=== PATIENT | male | born 1955 | race Caucasian/White ===

== ENCOUNTER 2021-11-01 05:35 | Day surgery (SDC) | payer OTHER ==
--- NOTE | 2021-10-28 17:41 | RAD REPORT ---
EXAM DESCRIPTION: RAD - Chest Pa And Lat (2 Views) - 10/28/2021 5:20 pm CLINICAL HISTORY: Pre op pending shoulder arthroscopy COMPARISON: None TECHNIQUE: Frontal and lateral views of the chest were obtained. FINDINGS: The lungs are clear. No failure or volume overload. Loop recorder overlies the left lower chest. Heart size is normal and central vasculature is within normal limits. No pleural effusion or pneumothorax seen. No acute bony finding noted. No aortic abnormality. IMPRESSION: No acute cardiopulmonary process.
[2021-10-28 17:46] LABS: Protime INR 1.04
[2021-11-01] MEDS ORDERED: NA CHLORIDE 0.9% 1,000 ML ONE ×2 (05:56→07:52)
[2021-11-01] MEDS ORDERED: dexAMETHasone 10 MG/ML VIAL ONE ×2 (06:46→07:42)
[2021-11-01] MEDS ORDERED: FENTANYL CITR 100 MCG/2 ML ONE (06:46)
[2021-11-01] MEDS ORDERED: LIDOCAINE 1% MPF 5 ML VIAL ONE (06:46)
[2021-11-01] MEDS ORDERED: MIDAZOLAM HCL 2 MG/2 ML INJ ONE (06:47)
[2021-11-01] MEDS ORDERED: EPINEPHRINE/PF 1 MG/ML AMP ONE ×2 (06:47→07:18)
[2021-11-01] MEDS ORDERED: ROPLVACAINE HCL 40 ML ONE (06:47)
[2021-11-01] MEDS ORDERED: CLINDAMYCIN INJ 600 MG in NA CHLORIDE 0.9% 50 ML IV ONE (07:30)
[2021-11-01] MEDS ORDERED: propofoL 200 MG/20 ML VIAL IV ONE (07:42)
[2021-11-01] MEDS ORDERED: KETOROLAC 30 MG/ML INJ ONE (07:43)
[2021-11-01] MEDS ORDERED: ONDANSETRON 4 MG/2 ML VIAL ONE (07:43)
[2021-11-01] MEDS ORDERED: LIDOCAINE 2% MPF 5 ML VIAL ONE (07:43)
[2021-11-01] MEDS ORDERED: ROCURONIUM 50 MG/5 ML VIAL IV ONE (07:46)
[2021-11-01] MEDS ORDERED: NEOSTIGMINE 1 MG/ML -5 ML ONE (10:24)
[2021-11-01] MEDS ORDERED: GLYCOPYRROLATE 0.2 MG/ML SYR ONE (10:24)
--- NOTE | 2021-11-01 10:47 | P.BOP ---
Preoperative diagnosis: left shoulder rotator cuff tear, biceps tenosynovitis, impingement syndrome Postoperative diagnosis: same Primary procedure: left shoulder arthroscopic rotator cuff repair Secondary procedure: left shoulder arthroscopic biceps tenotomy Other procedure(s): left shoulder arthroscopic subacromial decompression Blow Mold Machine Operator: NONE,NONE Estimated blood loss: 10 cc Specimen: none Findings: see dictation Anesthesia: General Complications: None Implants: 1- 5.5 mm Arthex corkscrew, 2- 4.75 mm Arthrex Swivelocks Fluids & blood products: per anesthesia record Transferred to: Recovery Room Condition: Good
[2021-11-01 11:04] VITALS: O2SAT 96
--- NOTE | 2021-11-01 11:10 | RAD REPORT ---
EXAM DESCRIPTION: RAD - Shoulder 1 View - 11/01/2021 10:58 am CLINICAL HISTORY: Shoulder surgery FINDINGS: Postsurgical changes involve the shoulder. No fracture or dislocation
[2021-11-01 14:29] VITALS: BP 134/66; TEMP 97.4
== END 2021-11-01 14:02 | disposition home or self-care (01) ==
LOC: OR 05:35
PROVIDERS: ATTEND Orthopaedic Surgery Sports Medicine
PROC: 0RNK4ZZ Release Left Shoulder Joint, Percutaneous Endoscopic Approach (ICD-10-PCS; 2021-11-01)
PROC: 0LM24ZZ Reattachment of Left Shoulder Tendon, Percutaneous Endoscopic Approach (ICD-10-PCS; principal; 2021-11-01 08:00)
DX: S46.012A Strain of muscle(s) and tendon(s) of the rotator cuff of left shoulder, initial encounter (principal); M25.512 Pain in left shoulder; M75.22 Bicipital tendinitis, left shoulder; M75.42 Impingement syndrome of left shoulder; Z20.822 Contact with and (suspected) exposure to COVID-19
CPT/HCPCS: 29827; 29826; 36415; 85610; 82947 ×2; 85730; 71046; 73020; U0002; J2704; J0171 ×2; J2250; J3010; J1100 ×2; J2795; J2710; J7030 ×2; J2405

== ENCOUNTER 2022-06-02 11:00 | Day surgery (SDC) | payer OTHER ==
[2022-05-08 10:37] LABS: SARS-CoV-2 Antigen Rapid Res Negative (Negative)
[2022-05-08 11:04] LABS: Protime INR 0.93
--- NOTE | 2022-05-08 11:45 | RAD REPORT ---
EXAM DESCRIPTION: Alicia Hassan And Kathy (2 Views)05/08/2022 11:27 am CLINICAL HISTORY: Preop for cardiac catheterization COMPARISON: October 2021 FINDINGS: The lungs appear clear of acute infiltrate. The heart is normal size. overweaver in place 2 centimeter area of increased density overlies mid to lower thoracic vertebral body IMPRESSION: 2 centimeter area of increased density overlies mid to lower thoracic vertebral body. Th is may represent a sclerotic lesion or confluence of overlying structures. It is recommended that the patient have dedicated x-rays of the thoracic spine for further evaluation No acute abnormality involving the lungs
--- NOTE | 2022-05-08 14:52 | EKG ---
Test Date: 2022-05-08 Test Time: 10:13:05 Keg Header: MINA MEASUREMENT RESULTS: Intervals: Rate: 86 CO: 160 QRSD: 78 QT: 370 QTc: 442 [place]: P: 48 CO: 160 QRS: 35 T: 23 INTERPRETIVE STATEMENTS: Normal sinus rhythm Normal ECG No previous ECG available for comparison Electronically Signed On 05-08-22 14:51:21 CDT by Panfilo Jameson
[2022-06-02] MEDS ORDERED: HEPA 1000U/500MLS 1,000 UNIT/500 ML BAG IV ONE (11:43)
[2022-06-02] MEDS ORDERED: MIDAZOLAM HCL 2 MG/2 ML INJ ONE ×2 (11:44→12:19)
[2022-06-02] MEDS ORDERED: VERAPAMIL HCL 10 MG/4 ML VIAL IV ONE (11:44)
[2022-06-02] MEDS ORDERED: HEPARIN 5000 UNIT/ML 1 ML VIAL ONE (11:44)
[2022-06-02] MEDS ORDERED: NITROGLYCERIN 100 MCG/ML SYR (for cath lab use only) IV ONE (11:44)
[2022-06-02] MEDS ORDERED: FENTANYL CITR 100 MCG/2 ML ONE (11:44)
[2022-06-02] MEDS ORDERED: HEPARIN 10,000 UNIT/10 ML VIAL IV ONE (11:44)
[2022-06-02] MEDS ORDERED: NITROGLYCERIN/D5W 25 MG/250 ML BTL IV ONE (11:45)
[2022-06-02] MEDS ORDERED: LIDOCAINE 1% MPF 30 ML VIAL ONE (11:45)
[2022-06-02] MEDS ORDERED: ATROPINE SULF 1 MG/10 ML SYR IV ONE (11:45)
[2022-06-02] MEDS ORDERED: CLOPIDOGREL 75 MG TABLET ONE (12:35)
[2022-06-02] MEDS ORDERED: ASPIRIN 325 MG TAB ONE (12:35)
[2022-06-02] MEDS ORDERED: REGADENOSON 0.4 MG/5 ML SYR IV ONE (13:04)
--- NOTE | 2022-06-02 16:09 | EKG ---
Test Date: 2022-05-30 Test Time: 10:29:46 Tin Worker: MEASUREMENT RESULTS: Intervals: Rate: 85 HI: 160 QRSD: 84 QT: 360 QTc: 428 [place]: P: 41 HI: 160 QRS: 18 T: 33 INTERPRETIVE STATEMENTS: Normal sinus rhythm Normal ECG Compared to ECG 05/08/2022 10:13:05 No significant changes Electronically Signed On 06-02-22 16:01:14 CDT by Panfilo Jameson
[2022-06-02 16:31] VITALS: BP 154/70; O2SAT 99
--- NOTE | 2022-06-03 00:39 | OP ---
Date of Procedure: 06/02/2022 Surgeon: OUMOU GOMEZ Procedures Performed: 1.Selective coronary angiogram. 2.Left heart catheterization. 3.IVUS of LAD, proximal. 4.FFR of proximal LAD, which was significant at 0.72. 5.PCI of mid LAD, severe stenosis. Used 2.75 x 20 mm Synergy drug-eluting stent. 6.PCI of severe proximal LAD stenosis. I used a 4.0 x 60 mm Synergy drug-eluting stent. Indication: Abnormal stress test with chest pain. Access: Right radial artery 6-Kittitian closed with TR band. Complications: None. Estimated Blood Loss: Bleeding less than 20 mL. Anesthesia: Total sedation time was 75 minutes, used fentanyl and Versed. Description Of Procedure: After risks, benefits, and alternatives were explained, the patient agreed to procedure and signed informed consent. Patient was brought into the cardiac catheterization labo ratory and prepped and draped in used sterile fashion. Then I accessed radial artery using pediatric micropuncture kit, placed a 6-Kittitian sheath, and took 5-Kittitian [place] 4 catheter into the aortic root , engaged left main and right coronary artery, took standard views and the catheter was pushed over t he wire into the LV, measured the LVEDP and pullback did not record any gradient. Then I gave system ic heparin to assure ACT level above 250 throughout the procedure and we gave 600 mg of Plavix and 32 5 mg of aspirin and then took a 6-Kittitian EBU 3.5 guide into aortic root, engaged left main, took shor t Runthrough wire into the LAD and the mid lesion was dilated and expanded very well and I placed a 2 .75 x 20 mm Synergy drug-eluting stent with excellent results and then the proximal segment was evalu ated by FFR and IVUS. IVUS catheter showed significant proximal LV stenosis. I sent an FFR wire into the aortic root and pressures were equalized and then the wire was advanced into the LAD passing the area of stenosis and Lexiscan was given and FFR was recorded to be as low as 0.72 and on pullback, t here was no drift. At this point, decided to proceed with PCI of the proximal LAD as well. Lesion w as predilated using a 4.0 balloon based on the IVUS measurements and then placed a 4.0 x 60 mm Synerg y drug-eluting stent with excellent results. Diagonal branch was protected with another Runthrough w susan; however, there was no jeopardize of flow at the end of procedure, so wires were removed. Final angiogram was satisfactory. We then removed the catheter and sheath were stable and good hemostasis. Findings: 1.Left main: Large and normal. 2.LAD: Proximal 80% stenosis with FFR of 0.72 and IVUS showed luminal area less than 4. Status pos t successful PCI as above. Then at the mid section after diagonal 2 branch, there was focal 90% sten osis status post successful PCI as above. There is no significant disease otherwise. Diagonal 1 bra nch has diffuse proximal 50% stenosis, but it is small. 3.Left circumflex: Moderate sized and there is an OM1 branch that is severely diseased about 95%, b ut it is showing that it is totally occluded and after the mid segment, so was left alone. 4.RCA: Large and dominant, proximal 40%, mid 60%, then 70% and then the PDA has 90% stenosis. The RCA is giving collaterals to the LAD. Conclusion: 1.Severe proximal and mid left anterior descending stenosis, status post successful percutaneous cor onary intervention as above. 2.Severe distal right coronary artery and right posterior descending artery stenosis. We will plan for staged percutaneous coronary intervention in about 4 weeks due to the contrast load was used toda y. 3.Severe obtuse marginal 1 stenosis, but it is a small vessel which will be left to medical manageme nt. Plan: 1.Continue aspirin, Plavix, and high-dose statin. 2.Staged percutaneous coronary intervention of the right coronary artery in 4 weeks. SR/MODL Voice ID: [id number] Report ID: [id number]
== END 2022-06-02 17:10 | disposition home or self-care (01) ==
LOC: CCL 11:00
PROVIDERS: ATTEND Internal Medicine
DX: I25.10 Atherosclerotic heart disease of native coronary artery without angina pectoris (principal); Z88.0 Allergy status to penicillin; Z20.822 Contact with and (suspected) exposure to COVID-19
CPT/HCPCS: 93005 ×2; 36415; 85610; 82947; 85347 ×5; 85730; 71046; 92978; 93458; 93571; 87811; C1893; Q9967; C1725; C9600; J1644 ×2; J2250; J3010; J2785; C1769

== ENCOUNTER → 2022-07-10 | Day surgery (SDC) | payer OTHER ==
[2022-07-07 17:06] LABS: Absolute Lymphocytes (CBC) 1.2 K/uL (0.7-4.9); Hematocrit 42.2 % (39.6-49.0); Lymphocytes % 15.6 % (15.3-44.8); MCV 81.3 fL (80-100); MPV 8.6 fL (7.6-11.3); Protime INR 1.13; RBC Red Blood Cell Count 5.19 M/uL (4.33-5.43)
[2022-07-07 17:17] LABS: Potassium 4.3 mmol/L (3.5-5.1)
--- NOTE | 2022-07-08 08:38 | EKG ---
Test Date: 2022-07-07 Test Time: 15:21:56 Events Assistant: MAX MEASUREMENT RESULTS: Intervals: Rate: 94 MS: 152 QRSD: 86 QT: 334 QTc: 417 [place]: P: 49 MS: 152 QRS: 40 T: 52 INTERPRETIVE STATEMENTS: Normal sinus rhythm Normal ECG Compared to ECG 05/30/2022 10:29:46 No significant changes Electronically Signed On 07-08-22 08:34:44 SECOND CLASS WELDER by Homar Gil
[~2022-07-10] MED LIST: ASPIRIN 325 MG TAB ONE; ATROPINE SULF 1 MG/10 ML SYR IV ONE; CLOPIDOGREL 75 MG TABLET ONE; FENTANYL CITR 100 MCG/2 ML ONE; HEPA 1000U/500MLS 3,000 UNIT/1,500 ML BAG IV ONE; HEPARIN 10,000 UNIT/10 ML VIAL IV ONE; HEPARIN 5000 UNIT/ML 1 ML VIAL ONE; MIDAZOLAM HCL 2 MG/2 ML INJ ONE; NA CHLORIDE 0.9% 500 ML ONE; TICAGRELOR 90 MG TABLET PO ONE; VERAPAMIL HCL 10 MG/4 ML VIAL IV ONE
[2022-07-10 12:58] VITALS: BP 145/65; O2SAT 97
== END ==
LOC: CCL 12:17
PROVIDERS: ATTEND Internal Medicine
DX: I25.10 Atherosclerotic heart disease of native coronary artery without angina pectoris (principal); Z79.01 Long term (current) use of anticoagulants; Z53.8 Procedure and treatment not carried out for other reasons
CPT/HCPCS: 93005; 85025; 80048; 36415; 85610; 82947; 85730; J7040

== ENCOUNTER 2022-07-14 12:19 | Day surgery (SDC) | payer OTHER ==
[2022-07-14] MEDS ORDERED: NA CHLORIDE 0.9% 500 ML ONE (12:54)
[2022-07-14 17:28] VITALS: O2SAT 96
[2022-07-14 17:42] VITALS: BP 116/58
--- NOTE | 2022-07-15 18:00 | OP ---
Date of Procedure: 07/14/2022 Surgeon: OUMOU GOMEZ Procedures Performed: 1.Selective coronary angiogram. 2.PCI of severe proximal right PDA stenosis, used 2.25 x 32 mm Synergy drug-eluting stent. Access: Right radial artery 6-Bhutanese closed with TR band. Complications: None. Bleeding: Less than 10 mL. Anesthesia: Total sedation time was 30 minutes, used fentanyl and Versed. Description Of Procedure: After risks, benefits, alternatives were explained, the patient agreed to the procedure and signed informed consent. The patient was brought into the cardiac catheterization laboratory, prepped and draped in the usual sterile fashion. Then, I accessed right radial artery us ing pediatric micropuncture kit and placed a 6-Bhutanese Slender sheath and took a 6-Bhutanese JR4 guide in to the aortic root, engaged the RCA and performed angiogram, and then took short Run-Through wire int o the RCA, placed it distally in the PDA and the lesion was pre-dilated using a 2.5 balloon. Subsequ ently, I placed a 2.25 x 32 mm Synergy drug-eluting stent with excellent results. I removed the wire and the final angiogram was satisfactory, and then removed the guide and the sheath was removed, river flash TR band with good hemostasis. Throughout the procedure, the patient was given systemic heparin t o assure ACT level above 250 and the patient was already on dual anti-platelet therapy, which was con tinued. Conclusion: Severe right PDA stenosis, status post successful PCI as above. Plan: Continued well anti-platelet therapy, high-dose statin. Follow up with me in the office in 4 weeks. SR/MODL Voice ID: [id number] Report ID: [id number]
== END 2022-07-14 17:49 | disposition home or self-care (01) ==
LOC: CCL 12:19
PROVIDERS: ATTEND Internal Medicine
DX: I25.10 Atherosclerotic heart disease of native coronary artery without angina pectoris (principal); I10 Essential (primary) hypertension; I82.409 Acute embolism and thrombosis of unspecified deep veins of unspecified lower extremity; E11.9 Type 2 diabetes mellitus without complications; E78.5 Hyperlipidemia, unspecified; Z95.5 Presence of coronary angioplasty implant and graft; Z79.01 Long term (current) use of anticoagulants; Z88.0 Allergy status to penicillin; Z82.49 Family history of ischemic heart disease and other diseases of the circulatory system
CPT/HCPCS: 76937; 82947; 85347; 93454; C1725; C1893; C9600; J7040; Q9966

== ENCOUNTER 2023-07-15 07:16 | Day surgery (SDC) | payer OTHER ==
[2023-07-15 07:50] LABS: Absolute Lymphocytes (CBC) 2.6 K/uL (0.7-4.9); Hematocrit 45.9 % (39.6-49.0); Lymphocytes % 33.5 % (15.3-44.8); MCV 86.3 fL (80-100); MPV 8.3 fL (7.6-11.3); Platelets 218 thou/uL (152-406); RBC Red Blood Cell Count 5.31 M/uL (4.33-5.43)
[2023-07-15 08:03] LABS: Potassium 3.6 mEq/L (3.5-5.1)
[2023-07-15] MEDS ORDERED: SUCCINYLCHOLINE 20 MG/ML (10 ML) IV ONE (08:41)
[2023-07-15] MEDS ORDERED: ONDANSETRON 4 MG/2 ML VIAL ONE (08:43)
[2023-07-15] MEDS ORDERED: LIDOCAINE 2% MPF 5 ML VIAL ONE (08:43)
[2023-07-15] MEDS ORDERED: propofoL 200 MG/20 ML VIAL IV ONE (08:43)
[2023-07-15] MEDS ORDERED: ROCURONIUM 50 MG/5 ML VIAL IV ONE (08:43)
[2023-07-15] MEDS ORDERED: FENTANYL CITR 100 MCG/2 ML ONE (08:43)
--- NOTE | 2023-07-15 08:49 | RAD REPORT ---
EXAM DESCRIPTION: Alicia Single View07/15/2023 8:43 am CLINICAL HISTORY: Preop COMPARISON: 2021 FINDINGS: The lungs appear clear of acute infiltrate. The heart is normal size IMPRESSION: No acute abnormalities displayed
[2023-07-15] MEDS ORDERED: CEFAZOLIN SODIUM 1 GM/VIAL ONE (09:13)
[2023-07-15] MEDS ORDERED: NEOSTIGMINE 1 MG/ML -10 ML VIAL ONE (09:39)
[2023-07-15] MEDS ORDERED: GLYCOPYRROLATE 0.2 MG/ML SYR ONE (09:39)
[2023-07-15] MEDS: HYDROMORPHONE HCL 1 MG/ML INJ ONE ×4 (10:01→10:34)
[2023-07-15] MEDS ORDERED: HYDROCODONE/APAP 7.5/325 MG TAB PO PRN (10:04)
--- NOTE | 2023-07-15 10:10 | P.OP ---
Date of Service: 07/15/23 Preop diagnosis: Umbilical hernia Postop diagnosis: Same Procedure performed: Laparoscopic assisted repair of umbilical hernia Surgeon: Wes Tsai MD Open Hearth Furnace Laborer: None Estimated blood loss: Minimal Specimen: Hernia sac and contents Findings: As above Anesthesia: General Complications: None Drains: None Fluids and blood products: Nonapplicable Disposition: Recovery room Operative note: Patient brought to the OR and placed in the supine position. General anesthesia begun. Patient prepped and draped in the usual sterile fashion. Marcaine 0.5% infiltrated locally. 15 blade used to make a left upper quadrant 1 cm incision. Subcutaneous tissue divided. Bleeding controlled cautery. Fascia identified and divided. #1 Vicryl stay suture placed. Peritoneal cavity entered with sharp and blunt dissection. 12 mm trocar placed into the peritoneal cavity under direct vision. Pneumoperitoneum established. Then 5 mm trocar placed in the left lower quadrant under direct vision. Laparoscopy revealed a medium size umbilical hernia with preperitoneal fat. A 4 cm incision made above the umbilicus. Subcutaneous tissue divided. Hernia sac and contents identified. Hernia sac and contents excised and sent to pathology as specimen. A 2.5 cm defect remained. Ventralex mesh large placed and secured with #1 PDS suture. Fascia was closed as well. Laparoscopy revealed complete coverage of the hernia defect. Pro tack used to secure the mesh to the abdominal wall. No evidence of bleeding or bowel injury appreciated. All trocars removed under direct vision. Stay sutures tied to each other to reapproximate the fascial defect. Subcutaneous wounds irrigated. Bleeding controlled cautery. 3-0 chromic used to approximate subcutaneous tissue. Staple used to close skin. Sterile dressing applied. Patient awakened and taken to recovery room in good general condition. CC: Annalee Holloway NP
[2023-07-15] MEDS ORDERED: CYCLOBENZAPRINE 10 MG TAB PO ONE (10:30)
[2023-07-15 12:29] VITALS: BP 147/59; TEMP 97.1; O2SAT 96
--- NOTE | 2023-07-17 15:28 | EKG ---
Test Date: 2023-07-15 Test Time: 09:33:56 Tree And Shrub Technician: SANDRA MEASUREMENT RESULTS: Intervals: Rate: 67 MT: 172 QRSD: 88 QT: 398 QTc: 420 [place]: P: 60 MT: 172 QRS: 42 T: 55 INTERPRETIVE STATEMENTS: Sinus rhythm with premature atrial complexes Otherwise normal ECG Compared to ECG 07/07/2022 15:21:56 Atrial premature complex(es) now present Electronically Signed On 07-17-23 15:21:22 RAC SPECIALIST by Panfilo Jameson
== END 2023-07-15 11:51 | disposition home or self-care (01) ==
LOC: OR 07:16
PROVIDERS: ATTEND Surgery
PROC: 0WUF4JZ Supplement Abdominal Wall with Synthetic Substitute, Percutaneous Endoscopic Approach (ICD-10-PCS; principal; 2023-07-15 09:00)
DX: K42.9 Umbilical hernia without obstruction or gangrene (principal); I25.10 Atherosclerotic heart disease of native coronary artery without angina pectoris; G47.33 Obstructive sleep apnea (adult) (pediatric); E11.9 Type 2 diabetes mellitus without complications; Z86.718 Personal history of other venous thrombosis and embolism; Z79.01 Long term (current) use of anticoagulants
CPT/HCPCS: 93005; 85025; 80048; 36415; 82947; 88302; 71045; 49591; J2704; J2710; J2001; J3010; J1170 ×2; J2405; J0690

== ENCOUNTER 2024-12-08 06:54 | Day surgery (SDC) | payer OTHER ==
[2024-12-07 10:48] LABS: Absolute Basophils 0.1 K/uL (0-0.5); Absolute Eosinophils 0.1 K/uL (0-0.5); Absolute Monocytes 0.8 K/uL (0.1-1.3); Absolute Neutrophil 5.4 K/uL (1.8-8.0); Basophils % 0.8 % (0-1.3); Eosinophils % 1.7 % (0-4.4); Hematocrit 43.6 % (39.6-49.0); Hemoglobin 14.5 g/dL (13.6-17.9); MCH 29.4 pg (27.0-35.0); MCHC 33.2 g/dL (32.0-36.0); MCV 88.4 fL (80-100); Monocytes % 9.3 % (3.3-12.3); Neutrophils % 64.2 % (41.7-73.7); Platelets 211 thou/uL (152-406); RBC Red Blood Cell Count 4.93 M/uL (4.33-5.43)
[2024-12-07 10:54] LABS: PT Prothrombin Time 12.8 SECONDS (10-13.0); PTT, Activated Partial Thromb 36.2 SECONDS (27.2-37.4); Protime INR 1.13
[2024-12-07 11:03] LABS: Anion Gap 7.2 mEq/L (5.0-15.0); Potassium 4.2 mEq/L (3.5-5.1)
--- NOTE | 2024-12-07 12:20 | RAD REPORT ---
EXAMINATION: TWO VIEW CHEST XR CLINICAL INDICATION: Male, 69 years old. [facility] MA[facility] Pre-op pending loop recorder removal. Hypertension TECHNIQUE: 2 view radiographs of the chest were performed. COMPARISON: 07/15/2023 FINDINGS: The lungs are grossly clear apart from stable left basilar atelectasis, although suboptimal inspirato ry effort somewhat limits evaluation. No pneumothorax or sizable effusion. The heart is normal in size. Mediastinal contours are unremarkable. IMPRESSION: No acute or significant abnormalities.
[2024-12-08] MEDS ORDERED: CEFAZOLIN SODIUM 1 GM/VIAL ONE (06:56)
[2024-12-08] MEDS ORDERED: NA CHLORIDE 0.9% 500 ML ONE (06:56)
[2024-12-08 07:08] VITALS: TEMP 97.7
[2024-12-08] MEDS ORDERED: LIDOCAINE HCL/EPINEPHRINE 20 ML MDV ONE (07:17)
[2024-12-08] MEDS ORDERED: CLINDAMYCIN 600MG/D5W 0 ML IV ONE (07:26)
[2024-12-08] MEDS ORDERED: MIDAZOLAM HCL 2 MG/2 ML INJ ONE (07:44)
[2024-12-08] MEDS ORDERED: FENTANYL CITR 100 MCG/2 ML ONE (07:45)
[2024-12-08] MEDS ORDERED: VANCOMYCIN 1 GM in NA CHLORIDE 0.9% 250 ML IVPB ONE (08:15)
[2024-12-08 09:37] VITALS: BP 144/69; O2SAT 95
--- NOTE | 2024-12-08 10:24 | OP ---
Date of Procedure: 12/08/2024 Surgeon: OUMOU GOMEZ Procedure Performed: Loop recorder removal. Description Of Procedure: After risks, benefits, and alternatives were explained, the patient agreed to procedure and signed informed consent. The patient was brought into the cardiac catheterization laboratory, prepped and draped in a sterile fashion. Then using x-ray, the location and the position of the loop recorder were identified. Then, a 1 cm surgical cut was done over the midshaft of the l oop recorder and it was held with a hemostat, and then another small cut at the tip was performed les s than a centimeter. Then, using hemostat, the loop recorder was removed successfully and postsurgic al caps were closed with 3 sutures each successfully without any complications. The patient tolerate d procedure very well. Sent to recovery in stable condition. Conclusion: Successful loop recorder removal. /AKSHAT Voice ID: [id number] Report ID: [id number]
--- NOTE | 2024-12-08 11:43 | EKG ---
Test Date: 2024-12-07 Test Time: 10:15:37 Rn Palliative Care: CLARENCE MEASUREMENT RESULTS: Intervals: Rate: 65 [place]: 184 QRSD: 74 QT: 410 QTc: 426 [place]: P: 36 [place]: 184 QRS: 26 T: 51 INTERPRETIVE STATEMENTS: Normal sinus rhythm Normal ECG Compared to ECG 07/15/2023 09:33:56 Atrial premature complex(es) no longer present Electronically Signed On 12-08-24 11:40:16 CDT by Hugh Campbell
== END 2024-12-08 10:00 | disposition home or self-care (01) ==
LOC: CCL 06:54
PROVIDERS: ATTEND Internal Medicine
PROC: 0JPT02Z Removal of Monitoring Device from Trunk Subcutaneous Tissue and Fascia, Open Approach (ICD-10-PCS; principal; 2024-12-08)
DX: Z45.09 Encounter for adjustment and management of other cardiac device (principal); I48.0 Paroxysmal atrial fibrillation; I25.10 Atherosclerotic heart disease of native coronary artery without angina pectoris; I10 Essential (primary) hypertension; E11.9 Type 2 diabetes mellitus without complications; E78.2 Mixed hyperlipidemia; Z79.82 Long term (current) use of aspirin; Z79.899 Other long term (current) drug therapy; Z88.0 Allergy status to penicillin; Z82.49 Family history of ischemic heart disease and other diseases of the circulatory system
CPT/HCPCS: 33286; 93005; 85025; 80048; 36415; 85610; 85730; 71046; C1893; J3370; J7050; J7040; J0690; J2250; J3010

== ENCOUNTER 2024-12-17 18:24 | Inpatient (IN) | payer OTHER ==
[2024-12-17 19:57] LABS: Specific Gravity 1.026 (1.005-1.030); Urine Bilirubin NEGATIVE (Negative); Urine Blood Negative (Negative); Urine Clarity Clear (Clear); Urine Color Light-Yellow (Yellow); Urine Glucose 4+ (Over) (Negative); Urine Ketones NEGATIVE (Negative); Urine Microscopic Reflex YN NO UMIC; Urine Nitrite NEGATIVE (Negative); Urine Protein NEGATIVE (Negative); Urine Urobilinogen Normal (Normal)
[2024-12-17] MEDS ORDERED: NA CHLORIDE 0.9% 1,000 ML ONE ×2 (19:59→23:09)
[2024-12-17 20:00] LABS: PT Prothrombin Time 14.5 SECONDS (10-13.0); Protime INR 1.29
[2024-12-17 20:03] LABS: Absolute Basophils 0.1 K/uL (0-0.5); Absolute Eosinophils 0.1 K/uL (0-0.5); Absolute Lymphocytes (CBC) 1.5 K/uL (0.7-4.9); Absolute Monocytes 1.3 K/uL (0.1-1.3); Absolute Neutrophil 7.7 K/uL (1.8-8.0); Basophils % 0.7 % (0-1.3); Eosinophils % 1.2 % (0-4.4); Hematocrit 40.7 % (39.6-49.0); Hemoglobin 13.6 g/dL (13.6-17.9); Lymphocytes % 14.3 % (15.3-44.8); MCH 29.8 pg (27.0-35.0); MCHC 33.4 g/dL (32.0-36.0); MCV 89.4 fL (80-100); MPV 8.9 fL (7.6-11.3); Monocytes % 12.1 % (3.3-12.3); Neutrophils % 71.7 % (41.7-73.7); Platelets 220 thou/uL (152-406); RBC Red Blood Cell Count 4.55 M/uL (4.33-5.43); Red Cell Distribution Width 14.3 % (12.1-15.2)
[2024-12-17 20:14] LABS: Albumin 3.4 g/dL (3.4-5.0); Albumin/Globulin Ratio 0.9 (1.1-1.8); Anion Gap 11.5 mEq/L (5.0-15.0); Bilirubin Direct 0.2 mg/dL (0-0.2); Bilirubin Indirect, Calculated 0.4 mg/dL (0.2-0.8); Bilirubin Total 0.6 mg/dL (0.2-1.0); Magnesium 2.1 mg/dL (1.6-2.4); Potassium 4.5 mEq/L (3.5-5.1); Protein, Total 7.4 g/dL (6.4-8.2); Troponin High Sensitivity 6.7 pg/mL (<58.9)
--- NOTE | 2024-12-17 20:15 | RAD REPORT ---
EXAM: Chest Single View HISTORY: 69 years Male fall COMPARISON: 12/07/2024 FINDINGS: LUNGS/PLEURA: The lungs are clear. No pleural effusions or pneumothorax. No pulmonary edema. CARDIAC/MEDIASTINUM: The cardiac silhouette is within normal limits. UPPER ABDOMEN: No significant abnormality. BONES: No acute abnormality. LINES/TUBES/OTHER: N/A IMPRESSION: No evidence of acute cardiopulmonary disease. No significant change from prior.
--- NOTE | 2024-12-17 20:17 | RAD REPORT ---
EXAMINATION: Femur Right VIEWS: Four views CLINICAL INDICATION: Male, 69 years old. fall RIGHT COMPARISON: No prior exam. IMPRESSION: No acute fracture of the right femur. No acute soft tissue abnormality. Mild to moderate right acetabular degenerative changes. Peripheral vascular calcifications.
--- NOTE | 2024-12-17 20:17 | RAD REPORT ---
EXAMINATION: Pelvis VIEWS: One view CLINICAL INDICATION: Male, 69 years old. fall COMPARISON: No prior exam. IMPRESSION: No acute fracture. No dislocation. Mild to moderate bilateral acetabular degenerative changes. Degenerative changes are present in the l ower spine.
--- NOTE | 2024-12-17 21:44 | RAD REPORT ---
EXAMINATION: Head Brain Wo Cont CLINICAL INDICATION: Male, 69 years old.DIZZINESS TECHNIQUE: Axial CT images from the skull base to the vertex without intravenous contrast. Coronal an d sagittal reformatted images were created from the data set. One or more of the following dose reduction techniques were used: Automated exposure control, adjustment of the mA and/or kV according to patient size, and/or iterative reconstruction. Unless otherwise specified, incidental findings do not require dedicated imaging follow-up. [id number]. COMPARISON: No prior exam. FINDINGS: INTRACRANIAL: No acute intracranial hemorrhage. No hydrocephalus. No mass effect or midline shift. Mi ld chronic small vessel ischemic changes.Mild cerebral atrophy. Small remote appearing bilateral cerebellar infarcts. VASCULATURE: No visualized abnormalities in the arteries or dural venous sinuses. SCALP/SKULL: No calvarial fracture identified. No acute soft tissue abnormality. SINUSES: The visualized paranasal sinuses are mostly clear. No significant mastoid fluid. IMPRESSION: No acute intracranial abnormality. Small remote appearing bilateral cerebellar infarcts.
[2024-12-17] MEDS ORDERED: MECLIZINE HCL 12.5 MG TAB ONE (21:59)
--- NOTE | 2024-12-17 22:57 | ER ---
Nurse's Notes [facility] Name: Rashid Smith Jr Age: 69 yrs Sex: Male : 1955 Arrival Date: 12/17/2024 Time: 18:24 Bed 6 Private MD: Diagnosis: Syncope;Hypotension, unspecified;Repeated falls Presentation: 12/17 18:38 Chief complaint: EMS states: BP 100's systolic en route. Coronavirus screen: Client ll1 denies travel out of the [place] in the last 14 days. At this time, the client does not indicate any symptoms associated with coronavirus-19. Ebola Screen: Patient denies travel to an Ebola-affected area in the 21 days before illness onset. Initial Sepsis Screen: Does the patient meet any 2 criteria? No. Patient's initial sepsis screen is negative. Does the patient have a suspected source of infection? No. Patient's initial sepsis screen is negative. Risk Assessment: Do you want to hurt yourself or someone else? Patient reports no desire to harm self or others. Onset of symptoms was December 14, 2024. 18:38 Method Of Arrival: EMS ll1 18:38 Acuity: LINDEN 2 ll1 18:43 Chief complaint: Patient states: BP has been low, especially with standing for 4 days. ll1 States he passed out a few times this week. R hip pain and bruising from one of the 7 falls in the past 4 days. Triage Assessment: 18:44 General: Appears uncomfortable, Behavior is calm, cooperative, appropriate for age. ll1 Pain: Complains of pain in R hip Quality of pain is described as aching. Neuro: Reports dizziness, headache a syncopal episode weakness. Musculoskeletal: Reports pain in R hip. Historical: - Allergies: 18:37 PENICILLINS; ll1 - PMHx: 18:37 Hypertensive disorder; Hypercholesterolemia; ll1 - PSHx: 18:37 LOOP monitor; heart stents; ll1 - Immunization history:: Adult Immunizations up to date. - Social history:: Smoking status: Patient denies any tobacco usage or history of. Screenin:40 [facility] ED Fall Risk Assessment (Adult) History of falling in the last 3 months, al5 including since admission No falls in past 3 months (0 pts) Confusion or Disorientation No (0 pts) Intoxicated or Sedated No (0 pts) Impaired Gait No (0 pts) Mobility Assist Device Used No (0 pt) Altered Elimination No (0 pt) Score/Fall Risk Level 0 - 2 = Low Risk Oriented to surroundings, Maintained a safe environment, Hourly rounding (assess needs \T\ fall precautionary measures) done. Abuse screen: Denies threats or abuse. Denies injuries from another. Nutritional screening: No deficits noted. Tuberculosis screening: No symptoms or risk factors identified. Assessment: 19:36 General: Appears in no apparent distress. comfortable, Behavior is calm, cooperative. al5 Pain: Denies pain. Neuro: Level of Consciousness is awake, alert, obeys commands, Oriented to person, place, time, situation. Cardiovascular: Capillary refill < 3 seconds Rhythm is sinus rhythm. Respiratory: Airway is patent Respiratory effort is even, unlabored, Respiratory pattern is regular, symmetrical. GI: Abdomen is flat, non-distended. : No signs and/or symptoms were reported regarding the genitourinary system. EENT: No signs and/or symptoms were reported regarding the EENT system. Derm: Skin is intact, is healthy with good turgor, Skin is pale. Musculoskeletal: No signs and/or symptoms reported regarding the musculoskeletal system. 20:35 Reassessment: Patient appears in no apparent distress at this time. No changes from vc1 previously documented assessment. Patient and/or family updated on plan of care and expected duration. Pain level reassessed. 21:59 Reassessment: Patient appears in no apparent distress at this time. No changes from al5 previously documented assessment. Patient and/or family updated on plan of care and expected duration. Pain level reassessed. Patient is alert, oriented x 3, equal unlabored respirations, skin warm/dry/pink. 23:32 Reassessment: Patient appears in no apparent distress at this time. No changes from al5 previously documented assessment. Patient and/or family updated on plan of care and expected duration. Pain level reassessed. Patient is alert, oriented x 3, equal unlabored respirations, skin warm/dry/pink. 12/18 03:27 Reassessment: Patient appears in no apparent distress at this time. No changes from al5 previously documented assessment. Patient and/or family updated on plan of care and expected duration. Pain level reassessed. Patient is alert, oriented x 3, equal unlabored respirations, skin warm/dry/pink. Vital Signs: 12/17 18:38 BP 97 / 58; Pulse 74; Resp 16; Temp 97.6; Pulse Ox 98% ; Weight 89.36 kg; Height 6 ft. ll1 0 in. ; Pain 5/10; 19:00 BP 118 / 66; Pulse 68; Resp 17; Pulse Ox 99% ; vc1 19:55 BP 125 / 59 Supine; Pulse 68; vc1 19:56 BP 90 / 53 Sitting; Pulse 71; vc1 20:00 BP 123 / 57; Pulse 67; Resp 19; Pulse Ox 98% ; al5 20:30 BP 133 / 59; Pulse 66; Resp 21; Pulse Ox 100% ; al5 21:00 BP 138 / 57; Pulse 66; Resp 18; Pulse Ox 100% ; al5 21:30 BP 140 / 64; Pulse 72; Resp 18; Pulse Ox 100% ; al5 22:00 BP 125 / 58; Pulse 69; Resp 19; Pulse Ox 100% ; al5 22:56 BP 90 / 53; Pulse 76; Resp 18; Pulse Ox 100% on R/A; td1 23:04 BP 117 / 67; Pulse 78; Resp 19; Pulse Ox 97% on R/A; hm5 12/18 00:38 BP 155 / 54; Pulse 87; Resp 19; Pulse Ox 98% on R/A; hm5 01:30 BP 144 / 69; Pulse 84; Resp 17; Pulse Ox 99% on R/A; hm5 02:15 BP 139 / 66; Pulse 79; Resp 18; Pulse Ox 97% on R/A; hm5 03:27 BP 128 / 58; Pulse 78; Resp 18; Pulse Ox 98% ; al5 12/17 18:38 Body Mass Index 26.72 (89.36 kg, 182.88 cm) ll1 12/17 18:38 Pain Scale: Adult ll1 ED Course: 12/17 18:37 Patient arrived in ED. ll1 18:37 Arm band placed on. ll1 18:39 Triage completed. ll1 18:52 [employer] PA is PHCP. cp 18:52 Dante Carlson MD is Attending Physician. cp 19:06 Teena Michaels, JUAN R is Primary Nurse. vc1 19:36 Patient has correct armband on for positive identification. Bed in low position. Call al5 light in reach. Side rails up X2. Provided Education on: plan of care. 19:43 XRAY Pelvis In Process Unspecified. EDMS 19:43 XRAY Femur RIGHT In Process Unspecified. EDMS 19:43 XRAY Chest (1 view) In Process Unspecified. EDMS 19:50 Inserted saline lock: 22 gauge in right antecubital area, using aseptic technique. vc1 ,using aseptic technique. difusics Blood collected. Flushed with 10 mL NS Missed attempt(s): 20 gauge in right antecubital area. Bleeding controlled, band aid applied, catheter tip intact. 19:57 Basic Metabolic Panel Sent. vc1 19:57 CBC with Diff Sent. vc1 19:57 LFT's Sent. vc1 19:57 Magnesium Sent. vc1 19:58 NT PRO-BNP Sent. vc1 19:58 PT-INR Sent. vc1 19:58 Troponin HS Sent. vc1 20:31 No provider procedures requiring assistance completed. al5 21:34 CT Head Brain wo Cont In Process Unspecified. EDMS 22:56 René Alejo MD is Hospitalizing Provider. 12/18 00:28 Patient admitted, IV remains in place. al5 00:33 CT Chest For PE Angio In Process Unspecified. EDMS Administered Medications: 12/17 20:03 Drug: NS 0.9% IV 1000 ml IV at 1000 ml once; to be given as a bolus over 60 minutes al5 Route: IV; Rate: 1000 ml; Site: right antecubital; 21:20 Follow up: Response: No adverse reaction; IV Status: Completed infusion; IV Intake: al5 1000ml 22:02 Drug: Meclizine PO 25 mg PO once Route: PO; hm5 23:09 Follow up: Response: No adverse reaction; No change in condition [facility] 23:25 Drug: NS 0.9% IV 1000 ml IV at 1000 ml once; to be given as a bolus over 60 minutes al5 Route: IV; Rate: 1000 ml; Site: right antecubital; 12/18 00:28 Follow up: Response: No adverse reaction; IV Status: Completed infusion; IV Intake: al5 1000ml Medication: 12/17 20:31 VIS not applicable for this client. al5 Intake: 21:20 IV: 1000ml; Total: 1000ml. al5 12/18 00:28 IV: 1000ml; Total: 2000ml. al5 Outcome: 12/17 22:57 Decision to Hospitalize by Provider. cp 12/18 00:28 Admitted to ER Hold. Please see [facility] for further documentation. al5 Condition: stable Instructed on the need for admit, 03:31 Admitted to Tele accompanied by tech, via wheelchair, room 429, Report called to al5 paperwork tubed to 4th floor 03:31 Condition: stable 03:31 Patient left the ED. al5 Signatures: Dispatcher [employer] EDMS [employer] PA PA cp Eleni Whitley, RN RN ll1 Teena Michaels RN RN vc1 Alicia Choe RN RN al5 John Sr td1 Christy Miranda, RN RN hm5 Corrections: (The following items were deleted from the chart) 12/17 22:25 20:35 BP 133 / 59; Pulse 67bpm; Resp 21bpm; Pulse Ox 100%; vc1 al5 22:25 21:30 BP 133 / 58; Pulse 70bpm; Resp 20bpm; Pulse Ox 100%; vc1 al5
--- NOTE | 2024-12-17 22:58 | EDPHYS ---
Physician Documentation [facility] Name: Rashid Smith Jr Age: 69 yrs Sex: Male : 1955 Arrival Date: 12/17/2024 Time: 18:24 Bed 6 Private MD: ED Physician Dante Carlson HPI: 12/17 19:05 This 69 yrs old Male presents to ER via EMS with complaints of Fall Injury, Hip Pain, cp Dizziness. 19:05 The patient presents with dizziness, feeling faint, generalized weakness, cp lightheadedness. Onset: The symptoms/episode began/occurred 4 day(s) ago. 19:05 Details of fall: The patient fell from an upright position, while walking, multiple cp with 7 episodes over past 4 days. Patient's baseline: Neuro: alert and fully oriented, Motor: no deficits, Ambulation: walks without assistance, Speech: normal. 19:05 Associated injuries: The patient sustained right hip, painful injury. Associated signs cp and symptoms: Pertinent positives: syncope, Pertinent negatives: abdominal pain, chest pain, confusion, focal weakness, head injury. Historical: - Allergies: 18:37 PENICILLINS; ll1 - PMHx: 18:37 Hypertensive disorder; Hypercholesterolemia; ll1 - PSHx: 18:37 LOOP monitor; heart stents; ll1 - Immunization history:: Adult Immunizations up to date. - Social history:: Smoking status: Patient denies any tobacco usage or history of. ROS: 19:10 Constitutional: Negative for body aches, chills, fever, poor PO intake, cp 19:10 Eyes: Negative for injury, pain, redness, and discharge, cp 19:10 ENT: Negative for drainage from ear(s), ear pain, sore throat, difficulty swallowing, difficulty handling secretions, 19:10 Cardiovascular: Negative for chest pain, edema, palpitations, 19:10 Respiratory: Negative for cough, shortness of breath, wheezing, 19:10 Abdomen/GI: Negative for abdominal pain, vomiting, diarrhea, constipation, 19:10 Neuro: Positive for dizziness, syncope, weakness, 19:10 All other systems are negative, Exam: 19:15 Constitutional: The patient appears in no acute distress, alert, awake, cp non-diaphoretic, non-toxic, well developed, well nourished, 19:15 Head/Face: Normocephalic, atraumatic. cp 19:15 Eyes: Periorbital structures: appear normal, Pupils: equal, round, and reactive to light and accomodation, Extraocular movements: intact throughout, Conjunctiva: normal, no exudate, no injection, Sclera: no appreciated abnormality, Lids and lashes: appear normal, bilaterally, 19:15 ENT: External ear(s): are unremarkable, Ear canal(s): are normal, clear, TM's: dullness, bilaterally, Nose: is normal, Mouth: Lips: moist, Oral mucosa: moist, Posterior pharynx: Airway: no evidence of obstruction, patent, 19:15 Neck: ROM/movement: is normal, is supple, without pain, no range of motions limitations, 19:15 Chest/axilla: Inspection: normal, Palpation: is normal, no crepitus, no tenderness, 19:15 Cardiovascular: Rate: normal, Rhythm: regular, Edema: is not appreciated, JVD: is not appreciated, 19:15 Respiratory: the patient does not display signs of respiratory distress, Respirations: normal, no use of accessory muscles, no retractions, labored breathing, is not present, Breath sounds: are clear throughout, no decreased breath sounds, no stridor, no wheezing, 19:15 Abdomen/GI: Inspection: abdomen appears normal, Palpation: abdomen is soft and non-tender, in all quadrants, 19:15 Neuro: Orientation: to person, place \T\ time. Mentation: able to follow commands, Cerebellar function: Romberg testing is negative, normal finger to nose testing, Motor: moves all fours, no focal deficits, Sensation: no obvious gross deficits, 19:15 Musculoskeletal/extremity: Extremities: noted in the right hip: pain, tenderness, ROM: cp limited passive range of motion due to pain, in the right hip, 20:00 ECG was reviewed by the Attending Physician. cp Vital Signs: 18:38 BP 97 / 58; Pulse 74; Resp 16; Temp 97.6; Pulse Ox 98% ; Weight 89.36 kg; Height 6 ft. ll1 0 in. ; Pain 5/10; 19:00 BP 118 / 66; Pulse 68; Resp 17; Pulse Ox 99% ; vc1 19:55 BP 125 / 59 Supine; Pulse 68; vc1 19:56 BP 90 / 53 Sitting; Pulse 71; vc1 20:00 BP 123 / 57; Pulse 67; Resp 19; Pulse Ox 98% ; al5 20:30 BP 133 / 59; Pulse 66; Resp 21; Pulse Ox 100% ; al5 21:00 BP 138 / 57; Pulse 66; Resp 18; Pulse Ox 100% ; al5 21:30 BP 140 / 64; Pulse 72; Resp 18; Pulse Ox 100% ; al5 22:00 BP 125 / 58; Pulse 69; Resp 19; Pulse Ox 100% ; al5 22:56 BP 90 / 53; Pulse 76; Resp 18; Pulse Ox 100% on R/A; td1 23:04 BP 117 / 67; Pulse 78; Resp 19; Pulse Ox 97% on R/A; hm5 12/18 00:38 BP 155 / 54; Pulse 87; Resp 19; Pulse Ox 98% on R/A; hm5 01:30 BP 144 / 69; Pulse 84; Resp 17; Pulse Ox 99% on R/A; hm5 02:15 BP 139 / 66; Pulse 79; Resp 18; Pulse Ox 97% on R/A; hm5 03:27 BP 128 / 58; Pulse 78; Resp 18; Pulse Ox 98% ; al5 12/17 18:38 Body Mass Index 26.72 (89.36 kg, 182.88 cm) ll1 12/17 18:38 Pain Scale: Adult ll1 MDM: 12/17 18:52 Medical Screening Exam initiated cp 23:00 Data reviewed: vital signs, nurses notes, lab test result(s), EKG, radiologic studies, cp CT scan, plain films. 23:00 Differential diagnosis: closed head injury, cardiac arrhythmia, CVA, generalized cp weakness, GI bleed, hypovolemia, idiopathic dizziness, syncope, TIA. Management of patient was discussed with the following: Hospitalist: DR Alejo who will admit after discussion. I considered the following discharge prescriptions or medication management in the emergency department Medications were administered in the Emergency Department. See MAR. Independent interpretation of the following test(s) in the Emergency Department EKG: See my EKG interpretation above. Care significantly affected by the following chronic conditions: Hypertension. Counseling: I had a detailed discussion with the patient and/or guardian regarding the historical points, exam findings, and any diagnostic results supporting the discharge/admit diagnosis, lab results, radiology results, the need for further work-up and treatment in the hospital. Response to treatment: the patient's symptoms have mildly improved after treatment. 12/17 19:04 Order name: Basic Metabolic Panel; Complete Time: 20:29 cp 12/17 20:30 Interpretation: Normal except: GFR 63. cp 12/17 19:04 Order name: CBC with Diff; Complete Time: 20:29 cp 12/17 19:04 Order name: LFT's; Complete Time: 20:29 cp 12/17 19:04 Order name: Magnesium; Complete Time: 20:29 cp 12/17 19:04 Order name: NT PRO-BNP; Complete Time: 20:29 cp 12/17 19:04 Order name: PT-INR; Complete Time: 20:29 cp 12/17 19:04 Order name: Troponin HS; Complete Time: 20:29 cp 12/17 19:04 Order name: UA Rfx Destin Cult if indicated; Complete Time: 20:29 cp 12/17 23:02 Order name: D-Dimer; Complete Time: 23:38 cp 12/18 00:42 Order name: CBC with Automated Diff EDMS 12/18 00:42 Order name: CBC with Automated Diff EDMS 12/18 00:42 Order name: Comprehensive Metabolic Panel EDMS 12/18 00:42 Order name: Comprehensive Metabolic Panel EDMS 12/18 00:42 Order name: Troponin High Sensitivity EDMS 12/18 00:42 Order name: Troponin High Sensitivity EDMS 12/18 00:42 Order name: Troponin High Sensitivity EDMS 12/18 00:42 Order name: Troponin High Sensitivity EDMS 12/17 19:04 Order name: XRAY Pelvis; Complete Time: 20:29 cp 12/17 19:04 Order name: XRAY Femur RIGHT; Complete Time: 20:29 cp 12/17 19:04 Order name: XRAY Chest (1 view); Complete Time: 20:29 cp 12/17 20:58 Order name: CT Head Brain wo Cont; Complete Time: 21:46 cp 12/17 23:39 Order name: CT Chest For PE Angio cp 12/17 19:04 Order name: Orthostatic Blood Pressure; Complete Time: 19:58 cp 12/17 19:04 Order name: Cardiac monitoring; Complete Time: 19:57 cp 12/17 19:04 Order name: EKG - Nurse/Tech; Complete Time: 19:57 cp 12/17 19:04 Order name: IV Saline Lock; Complete Time: 19:57 cp 12/17 19:04 Order name: Labs collected and sent; Complete Time: 19:57 cp 12/17 19:04 Order name: O2 Per Protocol; Complete Time: 19:57 cp 12/17 19:04 Order name: O2 Sat Monitoring; Complete Time: 19:57 cp 12/17 21:47 Order name: Misc. Order: ambulate patient; Complete Time: 22:37 cp EC:00 Rate is 69 beats/min. Rhythm is regular. MN interval is normal. QRS interval is normal. cp QT interval is normal. T waves are Inverted in lead aVR. Interpreted by me. Reviewed by me. Administered Medications: 20:03 Drug: NS 0.9% IV 1000 ml IV at 1000 ml once; to be given as a bolus over 60 minutes al5 Route: IV; Rate: 1000 ml; Site: right antecubital; 21:20 Follow up: Response: No adverse reaction; IV Status: Completed infusion; IV Intake: al5 1000ml 22:02 Drug: Meclizine PO 25 mg PO once Route: PO; hm5 23:09 Follow up: Response: No adverse reaction; No change in condition [facility] 23:25 Drug: NS 0.9% IV 1000 ml IV at 1000 ml once; to be given as a bolus over 60 minutes al5 Route: IV; Rate: 1000 ml; Site: right antecubital; 12/18 00:28 Follow up: Response: No adverse reaction; IV Status: Completed infusion; IV Intake: al5 1000ml Disposition Summary: 12/17/24 22:57 Hospitalization Ordered Notes: Hospitalization Status: Inpatient Admission cp Provider: René Alejo cp Condition: Stable cp Problem: new cp Symptoms: have improved cp Bed/Room Type: Standard cp Location: Telemetry/MedSurg (Inpatient)(12/18/24 02:07) Room Assignment: [facility](12/18/24 02:07) Diagnosis - Syncope cp - Hypotension, unspecified cp - Repeated falls cp Forms: - Medication Reconciliation Form cp - SBAR form cp - Leadership Thank You Letter cp Addendum: 12/21/2024 23:43 Co-signature as Attending Physician, Dante Carlson MD I reviewed the patient's care r n provided by the Advanced Practice Provider and agree with the diagnosis and treatment plan. Signatures: Dispatcher [employer] EDMS Peri Whitley, RN RN Dante Matthews MD MD rn Page, Corey, PA PA cp Eleni Whitley, JUAN R RN ll1 Cheryl Friedman rv1 Alicia Choe RN RN al5 Christy Miranda, JUAN R RN hm5 Corrections: (The following items were deleted from the chart) 12/17 19:04 19:04 BASIC METABOLIC PANEL+C.LAB.BRZ ordered. EDMS EDMS 19:04 19:04 CBC+H.LAB.BRZ ordered. EDMS EDMS 19:04 19:04 HEPATIC FUNCTION+C.LAB.BRZ ordered. EDMS EDMS 19:04 19:04 MAGNESIUM+C.LAB.BRZ ordered. EDMS EDMS 19:04 19:04 PROBNP+C.LAB.BRZ ordered. EDMS EDMS 19:04 19:04 PROTIME (+INR)+COAG.LAB.BRZ ordered. EDMS EDMS 19:04 19:04 Troponin High Sensitivity+C.LAB.BRZ ordered. EDMS EDMS 19:04 19:04 UA Rfx Destin Cult if indicated+U.LAB.BRZ ordered. EDMS EDMS 19:04 19:04 Chest Single View+RAD.RAD.BRZ ordered. EDMS EDMS 23:39 23:39 Chest For PE Angio+CT.RAD.BRZ ordered. EDMS EDMS 12/18 01:31 12/17 22:57 Telemetry/MedSurg (Inpatient) cp rv1 12/18 01:31 12/17 22:57 cp rv1 12/18 02:07 01:31 [facility] ER HOLD rv1 kl 02:07 01:31 ERHOLD- rv1 kl
--- NOTE | 2024-12-18 00:37 | P.HP ---
Certification for Inpatient Patient admitted to: Observation With expected LOS: <2 Midnights Practitioner: I am a practitioner with admitting privileges, knowledge of patient current condition, hospital course, and medical plan of care. Services: Services provided to patient in accordance with Admission requirements found in Title 42 Section 412.3 of the Code of Federal Regulations Patient History Date of Service: 12/18/24 Reason for admission: Syncope History of Present Illness: 69-year-old male with a past medical history of hypertension, history of atrial fibrillation status post ablation and is on Eliquis, hyperlipidemia, CAD status post stents, had a recent loop monitor placement which was normal as per the patient, diabetes, brought to ER with multiple syncopal episodes. Patient states that whenever he tried to ambulate on standing his blood pressure drops has difficulty in balancing and falls down. No chest pain or shortness of breath. No fever or chills. Feels dizzy when standing up. Resolves when lying down. No fever or chills. No sick contacts. Patient was assessed in the ER and is admitted for further management . Allergies Penicillins Allergy (Verified 12/07/24 10:16) Unknown Home medications list reviewed: Yes Home Medications: Apixaban [Eliquis] 5 mg PO BID 10/28/21 Ivabradine HCl [Corlanor] 5 mg PO BID 05/08/22 Quetiapine [Seroquel] 25 mg PO BEDTIME 05/08/22 Rosuvastatin Calcium 20 mg PO DAILY 05/08/22 Empagliflozin/Metformin HCl [Synjardy 12.5-1,000 mg Tablet] 25 mg PO DAILY 07/15/23 Semaglutide [Ozempic] 2 mg SQ EVERY 7TH DAY 07/15/23 ARIPiprazole [Aripiprazole] 15 mg PO BEDTIME 12/18/24 Benztropine Mesylate [Cogentin*] 1 mg PO BID 12/18/24 Buspirone HCl 15 mg PO TID 12/18/24 Diphenhydramine HCl [Benadryl Allergy] 25 mg PO BEDTIME 12/18/24 Escitalopram Oxalate 10 mg PO BEDTIME 12/18/24 Melatonin [Melatonin*] 6 mg PO BEDTIME 12/18/24 Propranolol HCl 20 mg PO TID 12/18/24 - Past Medical/Surgical History Past Medical History: Reviewed- Non-Contributory Past Surgical History: Reviewed- Non-Contributory - Social History Smoking Status: Never smoker Review of Systems 10-point ROS is otherwise unremarkable Physical Examination - Vital Signs Temperature: 97.6 F Blood Pressure: 97/58 Pulse: 74 Respirations: 18 Pulse Ox (%): 94 - Physical Exam General: Alert, Oriented x3, Mild distress HEENT: Atraumatic, Normocephalic Neck: Supple, No Thyromegaly Respiratory: Clear to auscultation bilaterally, Normal air movement Cardiovascular: Regular rate/rhythm, Normal S1 S2 Capillary refill: <2 Seconds Gastrointestinal: Soft and benign, W/out hepatosplenomegaly Musculoskeletal: No clubbing, No swelling Integumentary: No rashes, No tenderness/swelling Neurological: Other (Alert awake nonfocal) Lymphatics: No axilla or inguinal lymphadenopathy - Studies Laboratory Data (last 24 hrs) 12/17/24 12/17/24 12/17/24 19:46 19:46 19:46 WBC 10.70 Hgb 13.6 Hct 40.7 Plt Count 220 PT 14.5 H INR 1.29 Sodium 138 Potassium 4.5 BUN 17 Creatinine 1.23 Glucose 92 Magnesium 2.1 Total Bilirubin 0.6 AST 15 ALT 21 Alkaline Phosphatase 82 Assessment and Plan - Plan Syncope No focal weakness Had multiple syncopal episodes and falls CT head findings noted MRI brain ordered Monitor neuro vital signs Monitor under telemetry Will obtain orthostatic vital signs History of atrial fibrillation status post ablation On Eliquis We will continue the same Patient right now in sinus rhythm Obtain cardiology evaluation Will get an echocardiogram Elevated D-dimer CT chest negative for PE Hypertension Antihypertensives titrated Continue home medications and titrate as needed Hyperlipidemia Continue statin CKD stage II Monitor renal parameters Electrolytes monitor and replace accordingly Diabetes Insulin sliding scale Accu-Chek before every meal and at bedtime GI/DVT prophylaxis Advanced directive full code Discharge Plan: Home Plan to discharge in: 48 Hours - Advance Directives Does patient have a Living Will: No Does patient have a Durable POA for Healthcare: No - Code Status/Comfort Care Code Status: Full Code Time Spent Managing Pts Care (In Minutes): 48
[2024-12-18] MEDS ORDERED: ALBUTEROL 2.5 MG/3 ML NEB SOL NEB PRN (00:38)
[2024-12-18] MEDS ORDERED: ONDANSETRON 4 MG/2 ML VIAL IV PRN (00:38)
--- NOTE | 2024-12-18 01:28 | RAD REPORT ---
EXAM: CT Angiography Chest With Intravenous Contrast CLINICAL HISTORY: The patient is 69 years old and is Male; syncope TECHNIQUE: Axial computed tomographic angiography images of the chest with intravenous contrast. Sagittal an d coronal reformatted images were created and reviewed. This CT exam was performed using one or more of the following dose reduction techniques: automated exposure control, adjustment of the mA a nd/or kV according to patient size, and/or use of iterative reconstruction technique. MIP reconstructed images were created and reviewed. COMPARISON: No relevant prior studies available. FINDINGS: PULMONARY ARTERIES: There are no obvious filling defects identified within the pulmonary arteries to suggest pulmonary embolism. AORTA: No acute findings. No thoracic aortic aneurysm. LUNGS: Unremarkable. No mass. No consolidation. PLEURAL SPACE: Unremarkable. No significant effusion. No pneumothorax. HEART: Unremarkable. No cardiomegaly. No significant pericardial effusion. No evidence of R V dysfunction. BONES/JOINTS: No acute fracture. No dislocation. SOFT TISSUES: Unremarkable. LYMPH NODES: Unremarkable. No enlarged lymph nodes. LIVER: The liver is enlarged and mildly fatty. STOMACH AND BOWEL: The stomach is distended with food contents. Suggestion of a lipoma within the gastric wall is noted. IMPRESSION: No evidence of pulmonary embolism. Electronically signed by: Kathy Arango MD 12/18/2024 01:24 AM CDT Due to temporary technical issues with the PACS/[employer] reporting system, reports are being adriel d by the in-house radiologist without review as a courtesy to ensure prompt reporting the interpreting radiologist is fully responsible for the content of the report. Transcribed Date/Time: 12/18/2024 1:28 AM
[2024-12-18 02:44] VITALS: BMI 26.7
[2024-12-18] MEDS: ACETAMINOPHEN 325 MG TABLET PO PRN (04:11)
[2024-12-18] MEDS: NA CHLORIDE 0.9% 1,000 ML IV SCH (04:12)
[2024-12-18] MEDS: METFORMIN HCL PO SCH (09:00)
[2024-12-18] MEDS ORDERED: DIVALPROEX ER 250 MG TAB PO SCH (09:00)
[2024-12-18] MEDS: IVABRADINE HCL 5 MG PO SCH (09:00)
[2024-12-18] MEDS: EMPAGLIFLOZIN PO SCH (09:00)
[2024-12-18] MEDS: ROSUVASTATIN 10 MG TAB PO SCH (09:10)
[2024-12-18] MEDS: BENZTROPINE 1 MG TAB PO SCH (09:10)
[2024-12-18] MEDS: APIXABAN 5 MG TABLET PO SCH (09:10)
[2024-12-18] MEDS: BUSPIRONE HCL 15 MG TABLET PO SCH (09:10)
--- NOTE | 2024-12-18 11:22 | P.CNS ---
Date of Consult: 12/18/24 Chief Complaint: Syncope History of Present Illness: Patient with PMH of AF, heart failure preserved EF, presented with repeated dizzy spells, low BP, denies chest pain, no palpitations, no syncope, no GUILLERMO, no SOB. Allergies Penicillins Allergy (Verified 12/07/24 10:16) Unknown Home medications list reviewed: Yes Home Medications: Apixaban [Eliquis] 5 mg PO BID 10/28/21 Ivabradine HCl [Corlanor] 5 mg PO BID 05/08/22 Quetiapine [Seroquel] 25 mg PO BEDTIME 05/08/22 Rosuvastatin Calcium 20 mg PO DAILY 05/08/22 Empagliflozin/Metformin HCl [Synjardy 12.5-1,000 mg Tablet] 25 mg PO DAILY 07/15/23 Semaglutide [Ozempic] 2 mg SQ EVERY 7TH DAY 07/15/23 ARIPiprazole [Aripiprazole] 15 mg PO BEDTIME 12/18/24 Benztropine Mesylate [Cogentin*] 1 mg PO BID 12/18/24 Buspirone HCl 15 mg PO TID 12/18/24 Diphenhydramine HCl [Benadryl Allergy] 25 mg PO BEDTIME 12/18/24 Escitalopram Oxalate 10 mg PO BEDTIME 12/18/24 Melatonin [Melatonin*] 6 mg PO BEDTIME 12/18/24 Propranolol HCl 20 mg PO TID 12/18/24 - Past Medical/Surgical History Diabetic: Yes -: hypertension -: diabetes mellitus type 2 -: atrial fibrillation -: insomnia - Social History Place of Residence: Home Review of Systems 10-point ROS is otherwise unremarkable Physical Examination Temp Pulse Resp BP Pulse Ox 98.2 F 64 12 109/56 L 97 12/18/24 08:00 12/18/24 08:00 12/18/24 08:00 12/18/24 08:00 12/18/24 08:00 General: Alert, In no apparent distress HEENT: Atraumatic, PERRLA, Mucous membr. moist/pink, EOMI, Sclerae nonicteric Neck: Supple, 2+ carotid pulse no bruit, No LAD, Without JVD or thyroid abnormality Respiratory: Clear to auscultation bilaterally, Normal air movement Cardiovascular: Regular rate/rhythm, Normal S1 S2 Gastrointestinal: Normal bowel sounds, No tenderness Musculoskeletal: No tenderness Integumentary: No rashes Neurological: Normal gait, Normal speech, Normal tone, Normal affect Lymphatics: No axilla or inguinal lymphadenopathy Laboratory Data (last 24 hrs) 12/17/24 12/17/24 12/17/24 19:46 19:46 19:46 WBC 10.70 Hgb 13.6 Hct 40.7 Plt Count 220 PT 14.5 H INR 1.29 Sodium 138 Potassium 4.5 BUN 17 Creatinine 1.23 Glucose 92 Magnesium 2.1 Total Bilirubin 0.6 AST 15 ALT 21 Alkaline Phosphatase 82 - Problems (1) Dizziness Current Visit: Yes Status: Acute Plan: Patient BP is labile, stop Ivabaradine stop Propranolol get orthostatic vitals continue to monitor (2) Atrial fibrillation Current Visit: Yes Status: Acute Plan: continue Eliquis 5 mg po BID Continue to monitor on tele
--- NOTE | 2024-12-18 16:56 | P.PN ---
Date of Service: 12/18/24 Patient seen and examined. Patient reports his blood pressure was as low as 80/40 and was experiencing dizziness with standing prior to presentation. He feels he later fell because of the low blood pressure. Patient stated he wore an event monitor about 3 years ago and the result was unremarkable. Patient seen and evaluated by cardiology. He is on ivabradine and propranolol which are discontinued per cardiology recommendation. Continue telemetry and monitor blood pressure. Check orthostatic vitals.
[2024-12-18] MEDS: ESCITALOPRAM OXALATE 10 MG TABLET PO SCH (21:58)
[2024-12-18] MEDS: MELATONIN 3 MG TABLET PO SCH (21:58)
[2024-12-18] MEDS: ARIPiprazole 5 MG TAB PO SCH (21:58)
[2024-12-18] MEDS: QUETIAPINE 25 MG TAB PO SCH (21:59)
[2024-12-18] MEDS: DIPHENHYDRAMINE 25 MG TAB/CAP PO SCH (22:00)
[2024-12-19 07:16] LABS: Absolute Basophils 0.1 K/uL (0-0.5); Absolute Eosinophils 0.2 K/uL (0-0.5); Absolute Lymphocytes (CBC) 1.6 K/uL (0.7-4.9); Absolute Monocytes 1.2 K/uL (0.1-1.3); Absolute Neutrophil 8.1 K/uL (1.8-8.0); Basophils % 0.5 % (0-1.3); Eosinophils % 1.6 % (0-4.4); Hematocrit 35.6 % (39.6-49.0); Hemoglobin 12.1 g/dL (13.6-17.9); Lymphocytes % 14.2 % (15.3-44.8); MCH 30.1 pg (27.0-35.0); MCHC 33.9 g/dL (32.0-36.0); MCV 88.9 fL (80-100); Neutrophils % 72.7 % (41.7-73.7); Nucleated Red Blood Cells % 0.1 % (0-0); Platelets 179 thou/uL (152-406); RBC Red Blood Cell Count 4.01 M/uL (4.33-5.43); Red Cell Distribution Width 14.2 % (12.1-15.2)
[2024-12-19 07:21] LABS: Albumin 2.8 g/dL (3.4-5.0); Albumin/Globulin Ratio 0.8 (1.1-1.8); Anion Gap 8.9 mEq/L (5.0-15.0); Bilirubin Total 0.7 mg/dL (0.2-1.0); Globulin 3.5 g/dL (2.3-3.5); Potassium 3.9 mEq/L (3.5-5.1); Protein, Total 6.3 g/dL (6.4-8.2)
[2024-12-19] MEDS: NA CHLORIDE 0.9% 500 ML IV ONE (10:45)
--- NOTE | 2024-12-19 10:53 | P.PN ---
Subjective Date of Service: 12/19/24 Chief Complaint: Syncope Subjective: No new changes, No C/O voiced, Tolerating diet, Ambulating, Improving Review of Systems 10-point ROS is otherwise unremarkable Physical Examination - Vital Signs Temperature: 98.2 F Blood Pressure: 117/61 Pulse: 87 Respirations: 12 Pulse Ox (%): 99 - Physical Exam General: Alert, In no apparent distress HEENT: Atraumatic, PERRLA, EOMI Neck: Supple, JVD not distended Respiratory: Clear to auscultation bilaterally, Normal air movement Cardiovascular: Regular rate/rhythm, Normal S1 S2 Gastrointestinal: Normal bowel sounds, No tenderness Musculoskeletal: No tenderness Integumentary: No rashes Neurological: Normal speech, Normal tone, Normal affect Lymphatics: No axilla or inguinal lymphadenopathy - Studies Medications List Reviewed: Yes Assessment And Plan - Current Problems (Diagnosis) (1) Dizziness Current Visit: Yes Status: Acute Plan: Patient BP is labile, stop Ivabaradine stop Propranolol orthostatic vitals positive give NS 250 bolus encouraged hydration and fall precautions continue to monitor (2) Atrial fibrillation Current Visit: Yes Status: Acute Plan: continue Eliquis 5 mg po BID Continue to monitor on tele
[2024-12-19] MEDS: MIDODRINE HCL 5 MG TABLET PO SCH (16:35)
--- NOTE | 2024-12-19 16:47 | EKG ---
Test Date: 2024-12-17 Test Time: 19:52:54 Director Drug Safety: RAYMOND MEASUREMENT RESULTS: Intervals: Rate: 69 VT: 160 QRSD: 76 QT: 396 QTc: 424 [place]: P: 40 VT: 160 QRS: 13 T: 50 INTERPRETIVE STATEMENTS: Normal sinus rhythm Normal ECG Compared to ECG 12/07/2024 10:15:37 No significant changes Electronically Signed On 12-19-24 16:44:44 CDT by Hugh Campbell
--- NOTE | 2024-12-19 17:21 | P.PN ---
Subjective Date of Service: 12/19/24 Chief Complaint: Syncope Patient has no new complaint. He denies any dizziness. He is still orthostatic after a bolus of NS. Physical Examination - Vital Signs Temperature: 98.7 F Blood Pressure: 106/62 Pulse: 87 Respirations: 14 Pulse Ox (%): 98 - Studies Medications List Reviewed: Yes Assessment And Plan - Plan Physical examination General: Alert and oriented x3, NAD, HEENT: Conjunctiva not pale, anicteric sclera Neck: Supple, no elevated JVD Heart: Heart sounds 1 and 2 normal, regular rhythm, normal rate, no pedal edema Lungs: Clear to auscultation bilaterally, adequate breath sounds bilaterally, no rhonchi or crackles. Abdomen: Soft, nondistended, nontender, normal bowel sounds. Extremities: No tenderness, no deformity Skin: Normal skin turgor, no rash, no nodules or ulcers. Neuro: No focal motor deficit. Normal speech. Psychiatry: Normal mood, no agitation. Diagnosis Syncope and collapse Orthostatic hypotension History of atrial fibrillation status post ablation Essential tremors Fall Diabetes mellitus type 2 Plan: Syncope and collapse Fall Orthostatic hypotension Essential tremors Patient is significantly orthostatic explaining his multiple falls. Cardiology input appreciated Ivabradine and propranolol discontinued. Patient received IV NS bolus today Will continue IV fluid overnight. Patient started on midodrine for soft blood pressure and orthostatic hypotension Serial orthostatic vitals check. Echocardiogram is pending. Neurology consult for essential tremors and possible autonomic dysfunction. History of atrial fibrillation status post ablation Heart is rate controlled. No bradycardia Continue Eliquis. Fall precautions advised. Cardiology is following. Continue telemetry Elevated D-dimer CT chest negative for PE Diabetes melitis type II Blood sugar readings within normal range Insulin sliding scale Accu-Chek before every meal and at bedtime DVT prophylaxis: On Eliquis Advanced directive: full code
[2024-12-19] MEDS: NA CHLORIDE 0.9% 1,000 ML IV SCH (18:03)
--- NOTE | 2024-12-20 06:55 | ECHO ---
HEIGHT: 6 ft 0 in WEIGHT: 197 lb 0 oz DATE OF STUDY: 12/19/[address]: Nate Alejo DO 2-DIMENSIONAL: YES M.MODE: YES DOPPLER: YES COLOR FLOW: YES TDS: PORTABLE: YES DEFINITY: BUBBLE STUDY: DIAGNOSIS: SYNCOPE CARDIAC HISTORY: CATHERIZATION: NO SURGERY: NO PROSTHETIC VALVE: NO PACEMAKER: NO MEASUREMENTS (cm) DIASTOLIC (NORMALS) SYSTOLIC (NORMALS) IVSd 1.0 (0.6-1.2) LA Diam 3.2 (1.9-4.0) LVEF 60-65% LVIDd 3.1 (3.5-5.7) LVIDs 2.1 (2.0-3.5) %FS 32% LVPWd 1.1 (0.6-1.2) Ao Diam 2.8 (2.0-3.7) 2 DIMENSIONAL ASSESSMENT: RIGHT ATRIUM: NORMAL LEFT ATRIUM: MODERATELY DILATED RIGHT VENTRICLE: NORMAL LEFT VENTRICLE: NORMAL TRICUSPID VALVE: MILD TRICUSPID REGURGITATION MITRAL VALVE: NORMAL PULMONIC VALVE: NORMAL AORTIC VALVE: NORMAL PERICARDIAL EFFUSION: NONE AORTIC ROOT: NORMAL LEFT VENTRICULAR WALL MOTION: NORMAL DOPPLER/COLOR FLOW: GRADE I DIASTOLIC DYSFUNCTION COMMENTS: 1. NORMAL LEFT VENTRICULAR SYSTOLIC FUNCTION, EJECTION FRACTION 60-65%, NORMAL WALL MOTION 2. GRADE I DIASTOLIC DYSFUNCTION 3. MILD CALCIFIED AORTIC VALVE, MILD AORTIC REGURGITATION 4. MILD PULMONARY HYPERTENSION (RIGHT VENTRICULAR SYSTOLIC PRESSURE 30-35 mmHg) TECHNOLOGIST: LAYO DAVID
[2024-12-20 07:25] LABS: Anion Gap 8.9 mEq/L (5.0-15.0); Potassium 3.9 mEq/L (3.5-5.1)
[2024-12-20] MEDS: NA CHLORIDE 0.9% 500 ML IV ONE (12:28)
[2024-12-20] MEDS: NA CHLORIDE 0.9% 1,000 ML IV SCH (12:28)
--- NOTE | 2024-12-20 14:12 | P.PN ---
Subjective Date of Service: 12/20/24 Chief Complaint: Syncope Subjective: No new changes Review of Systems 10-point ROS is otherwise unremarkable Physical Examination - Vital Signs Temperature: 98.2 F Blood Pressure: 92/51 Pulse: 92 Respirations: 16 Pulse Ox (%): 96 - Physical Exam General: Alert, In no apparent distress HEENT: Atraumatic, PERRLA, EOMI Neck: Supple, JVD not distended Respiratory: Clear to auscultation bilaterally, Normal air movement Cardiovascular: Regular rate/rhythm, Normal S1 S2 Gastrointestinal: Normal bowel sounds, No tenderness Musculoskeletal: No tenderness Integumentary: No rashes Neurological: Normal speech, Normal tone, Normal affect Lymphatics: No axilla or inguinal lymphadenopathy - Studies Medications List Reviewed: Yes Assessment And Plan - Current Problems (Diagnosis) (1) Dizziness Current Visit: Yes Status: Acute Plan: Patient BP is labile, stop Ivabaradine stop Propranolol orthostatic vitals positive continue IV hydration patient was started on Midodrine 5 mg po TID encouraged hydration and fall precautions continue to monitor (2) Atrial fibrillation Current Visit: Yes Status: Acute Plan: continue Eliquis 5 mg po BID Continue to monitor on tele
--- NOTE | 2024-12-20 14:53 | P.PN ---
Date of Service: 12/20/24 Subjective Still with orthostatic vital signs and symptoms Having some urinary frequency/ retention Physical examination General: Alert and oriented x3, NAD, HEENT: Conjunctiva not pale, anicteric sclera Neck: Supple, no elevated JVD Heart: Heart sounds 1 and 2 normal, regular rhythm, normal rate, no pedal edema Lungs: Clear to auscultation bilaterally, adequate breath sounds bilaterally, no rhonchi or crackles. Abdomen: Soft, nondistended, nontender, normal bowel sounds. Extremities: No tenderness, no deformity Skin: Normal skin turgor, no rash, no nodules or ulcers. Neuro: No focal motor deficit. Normal speech. Psychiatry: Normal mood, no agitation. Vital signs reviewed Diagnosis Syncope and collapse Orthostatic hypotension History of atrial fibrillation status post ablation Essential tremors Fall Diabetes mellitus type 2 Plan: Syncope and collapse Fall Orthostatic hypotension Essential tremors Patient is significantly orthostatic explaining his multiple falls. Cardiology input appreciated Ivabradine and propranolol discontinued. Continue IV fluids Patient started on midodrine for soft blood pressure and orthostatic hypotension Serial orthostatic vitals check. Echocardiogram shows normal LVEF Neurology consult for essential tremors and possible autonomic dysfunction. To see patient today CT shows bilateral remote cerebellar infarcts which may be contributing to patient's symptoms History of atrial fibrillation status post ablation Heart is rate controlled. No bradycardia Continue Eliquis. Fall precautions advised. Cardiology is following. Continue telemetry Elevated D-dimer CT chest negative for PE Diabetes melitis type II Blood sugar readings within normal range Insulin sliding scale Accu-Chek before every meal and at bedtime DVT prophylaxis: On Eliquis Advanced directive: full code
--- NOTE | 2024-12-20 23:21 | CON ---
Reason For Consultation: Consultation was called because of repeated syncopal episodes. History Of Present Illness: Mr. Smith is a 69-year-old patient with hypertension, dyslipidemia who reports about a year's worth of some gait instability with a tendency to fall. He believes it happen ed suddenly 1 day about a year ago. However, he has now fallen multiple times more recently with 7 e pisodes in 4 days, prompting the hospital admission. He says prior to the episode, he may feel dizzy , faint, lightheaded and generally weak resulting in a fall. He denies being aware of having any str okes. However, CT scan of his head did identify bilateral chronic cerebellar strokes, which potentia lly may have occurred at the time the patient began having the syncopal episodes over a year ago. Fu rthermore, he has had significant orthostatic changes with vertebrobasilar insufficiency and big drop s in his systolic blood pressure resulting in the near syncopal episodes. Echocardiogram done on showed ejection fraction 60% to 65% and essentially unremarkable study except for grade 1 vanita stolic dysfunction and mild calcified aortic valve, mild pulmonary hypertension. His electrocardiogr am done on 12/17/2024 showed normal sinus rhythm. It was a normal study. His blood work is essentia lly unremarkable. His INR was 1.29. His comprehensive metabolic panel again is unremarkable. Basic metabolic and complete blood count with differential are unremarkable. Past Medical History: As noted above, multiple syncopal episodes with hypertension, dyslipidemia. Allergies: PENICILLIN. Past Surgical History: Loop monitor, cardiac stent placed. Family History: Noncontributory. Social History: No alcohol, tobacco, or IV drug use. Review of Systems: Aside from the dizziness and falling and loss of balance over the last year, he denies any other posi tives on a 10 point systems review. Physical Examination: Vital Signs: Currently in terms of orthostasis, 2 days ago while lying, blood pressure was 119/56, p ulse of 74. While sitting 84/48, pulse of 102 and while standing 74/41, pulse of 102. The patient w as symptomatic. General: Mr. Smith is comfortably resting in bed. He is in no acute distress. HEENT: Normocephalic, atraumatic. Sclerae anicteric. Oropharynx pink and moist. Neck: Supple. Chest: Clear. Heart: Regular. Extremities: Show no significant clubbing, cyanosis, or edema. Neurological: He is alert, oriented. No focal neurologic deficits and no focal weakness in upper an d lower extremities. Sensation intact, coordination intact. Assessment And Plan: Mr. Smith is a 69-year-old patient with significant vertebrobasilar insufficie ncy. He has had bilateral cerebellar infarcts likely contributing to his episodes of vertigo, dizzin ess, and falling. With marked low blood pressures, he should have midodrine on board, Florinef, abdo nicole binder, and GELACIO hose. Currently, medication regimen did include Eliquis 5 mg twice daily, albu terol nebulizer. He has Cogentin and that may be a contributing factor to some orthostatic changes a s well. He does have the midodrine 5 mg 3 times daily may be continued and Crestor 20 mg at bedtime. He has received normal saline a liter and may begin gentle therapy to help him cope with the loss o f balance and be proactive to reduce risk of additional falls and injuries. He may be discharged diogo e and follow up in Dr. Mallory's clinic within the month. LUIS/AKSHAT Voice ID: [id number] Report ID: [id number]
[2024-12-21] MEDS: FLUDROCORTISONE 0.1 MG TAB PO SCH (09:09)
[2024-12-21 11:02] VITALS: O2SAT 98
--- NOTE | 2024-12-21 12:29 | RAD REPORT ---
EXAMINATION: US CAROTID DUPLEX CLINICAL INDICATION: Syncope TECHNIQUE: Real-time grayscale, color flow and spectral Doppler sonographic images were obtained of t extracranial carotid system using a linear transducer. COMPARISON: No prior exam. FINDINGS: The velocity of the right internal carotid artery 157 cm/s The right ICA/CCA 1.8 The velocity left internal carotid artery 142 cm/s The left ICA/CCA ratio normal Mild plaque is present within the carotid arteries Vertebral arteries demonstrate anterograde flow. No significant abnormality external carotid arteries Methods for NASCET criteria: mild stenosis, 0% to 49%; moderate, 50% to 69%; severe stenosis, 70% to 99% IMPRESSION: The velocities of the internal carotid arteries would indicate approximately 50-55% stenosis. However , the images only demonstrate mild plaque within the arteries. The arteries do not appear to be significantly tortuous. Further evaluation with PA or MRA could be obtained to further evaluate the a rteries.
--- NOTE | 2024-12-21 16:03 | P.DS ---
Admission Date: 12/19/24 Discharge Date: 12/21/24 Disposition: ROUTINE DISCHARGE Discharge Condition: GOOD Reason for Admission: Syncope Brief History of Present Illness: 69-year-old male with a past medical history of hypertension, history of atrial fibrillation status post ablation and is on Eliquis, hyperlipidemia, CAD status post stents, had a recent loop monitor placement which was normal as per the patient, diabetes, brought to ER with multiple syncopal episodes. Patient states that whenever he tried to ambulate on standing his blood pressure drops has difficulty in balancing and falls down. No chest pain or shortness of breath. No fever or chills. Feels dizzy when standing up. Resolves when lying down. No fever or chills. No sick contacts. Patient was assessed in the ER and is admitted for further management . Hospital Course: Diagnosis Syncope and collapse Orthostatic hypotension History of atrial fibrillation status post ablation Essential tremors Fall Diabetes mellitus type 2 Patient was admitted to the hospital for syncope. Of note he had his propranolol increased little over a week ago for his essential tremor. He was noted to have significant orthostatic hypotension. His propranolol and Ivabradine were discontinued. Despite IV fluids his blood pressure was running on the low side and he was still orthostatic. Case was discussed with neurology who also saw the patient, he was started on midodrine first and then Florinef was added. He has been tolerating the midodrine 5 mg 3 times daily and Florinef 0.05 mg daily. His essential tremor was discussed as the propranolol was discontinued and neurology recommended starting primidone at 25 mg daily. This medication may cause drowsiness so it was recommended that we start at a low dose and he will need to follow-up with neurology and his PCP for further titration. Discussed orthostatic hypotension at length with patient, counseled on slow changes in position. He worked with PT and did quite well, as long as he is changing positions slowly he is not symptomatic or having near syncopal events. We recommend can he continues his other home medications including his Eliquis. CTA of the chest was performed which was negative for pulmonary embolism, echocardiogram was performed which showed normal LVEF with grade 1 diastolic dysfunction. Carotid artery ultrasound was also obtained which showed mild plaquing no severe stenosis. Patient is stable for discharge and outpatient follow-up with his PCP and neurology outpatient. He was counseled that his medications may require further titration and he may be able to come off of the midodrine/Florinef in the future depending on how his blood pressures and symptoms are. Offered to send prescriptions electronically but patient prefers printed handout to take to his pharmacy [facility] in [place]. Vital Signs/Physical Exam: Temp Pulse Resp BP Pulse Ox 97.5 F 98 H 20 112/51 L 98 12/21/24 12:00 12/21/24 12:00 12/21/24 12:00 12/21/24 12:00 12/21/24 12:00 General: Alert, In no apparent distress, Oriented x3 HEENT: Atraumatic, PERRLA Neck: Supple, JVD not distended Respiratory: Clear to auscultation bilaterally, Normal air movement Cardiovascular: Regular rate/rhythm, Normal S1 S2 Gastrointestinal: Normal bowel sounds, No tenderness Musculoskeletal: No tenderness Integumentary: No rashes Neurological: Normal speech Laboratory Data at Discharge: WBC 11.20 thou/uL (4.3-10.9) H 12/19/24 06:49 Hgb 12.1 g/dL (13.6-17.9) L 12/19/24 06:49 Hct 35.6 % (39.6-49.0) L 12/19/24 06:49 Plt Count 179 thou/uL (152-406) 12/19/24 06:49 PT 14.5 SECONDS (10-13.0) H 12/17/24 19:46 INR 1.29 12/17/24 19:46 Sodium 142 mEq/L (136-145) 12/20/24 06:38 Potassium 3.9 mEq/L (3.5-5.1) 12/20/24 06:38 BUN 10 mg/dL (7-18) 12/20/24 06:38 Creatinine 0.73 mg/dL (0.70-1.30) 12/20/24 06:38 Glucose 87 mg/dL (74-106) 12/20/24 06:38 Magnesium 2.1 mg/dL (1.6-2.4) 12/17/24 19:46 Total Bilirubin 0.7 mg/dL (0.2-1.0) 12/19/24 06:49 AST 14 U/L (15-37) L 12/19/24 06:49 ALT 16 U/L (16-61) 12/19/24 06:49 Alkaline Phosphatase 65 U/L (45-117) 12/19/24 06:49 Home Medications: Apixaban [Eliquis] 5 mg PO BID 10/28/21 Quetiapine [Seroquel*] 25 mg PO BEDTIME 05/08/22 Rosuvastatin Calcium 20 mg PO DAILY 05/08/22 Empagliflozin/Metformin HCl [Synjardy 12.5-1,000 mg Tablet] 25 mg PO DAILY 07/15/23 Semaglutide [Ozempic] 2 mg SQ EVERY 7TH DAY 07/15/23 ARIPiprazole [Aripiprazole] 15 mg PO BEDTIME 12/18/24 Benztropine Mesylate [Cogentin*] 1 mg PO BID 12/18/24 Buspirone HCl 15 mg PO TID 12/18/24 Diphenhydramine HCl [Benadryl Allergy] 25 mg PO BEDTIME 12/18/24 Escitalopram Oxalate 10 mg PO BEDTIME 12/18/24 Melatonin [Melatonin*] 6 mg PO BEDTIME 12/18/24 Fludrocortisone [Florinef] 0.05 mg PO DAILY #30 tab 12/21/24 Midodrine HCl [Proamatine*] 5 mg PO TID #90 tab 12/21/24 Primidone 25 mg PO DAILY #30 tab 12/21/24 New Medications: Fludrocortisone [Florinef] 0.05 mg PO DAILY #30 tab Primidone 25 mg PO DAILY #30 tab Midodrine HCl [Proamatine*] 5 mg PO TID #90 tab Physician Discharge Instructions: Patient was admitted to the hospital for syncope. Of note he had his propranolol increased little over a week ago for his essential tremor. He was noted to have significant orthostatic hypotension. His propranolol and Ivabradine were discontinued. Despite IV fluids his blood pressure was running on the low side and he was still orthostatic. Case was discussed with neurology who also saw the patient, he was started on midodrine first and then Florinef was added. He has been tolerating the midodrine 5 mg 3 times daily and Florinef 0.05 mg daily. His essential tremor was discussed as the propranolol was discontinued and neurology recommended starting primidone at 25 mg daily. This medication may cause drowsiness so it was recommended that we start at a low dose and he will need to follow-up with neurology and his PCP for further titration. Discussed orthostatic hypotension at length with patient, counseled on slow changes in position. He worked with PT and did quite well, as long as he is changing positions slowly he is not symptomatic or having near syncopal events. We recommend can he continues his other home medications including his Eliquis. CTA of the chest was performed which was negative for pulmonary embolism, echocardiogram was performed which showed normal LVEF with grade 1 diastolic dysfunction. Carotid artery ultrasound was also obtained which showed mild pl aquing no severe stenosis. Patient is stable for discharge and outpatient follow-up with his PCP and neurology outpatient. He was counseled that his medications may require further titration and he may be able to come off of the midodrine/Florinef in the future depending on how his blood pressures and symptoms are. Offered to send prescriptions electronically but patient prefers printed handout to take to his pharmacy [facility] in [place]. Diet: Regular Activity: Ad gigi Followup: Hugh Campbell MD [ACTIVE - CAN ADMIT] - 1-2 Weeks NONE,NONE [Primary Care Provider] - 1-2 Weeks Time spent managing pt's care (in minutes): 45
[2024-12-21 16:41] VITALS: BP 147/65; TEMP 97.9
== END 2024-12-21 17:55 | disposition home or self-care (01) | DRG 312 ==
LOC: ER 18:24 → UNDOADMOB 12-18 00:38 → ERHOLD 12-18 00:38 → 4TH 12-18 02:37 → OBSVTOIN 12-18 18:24 → INTOOBSV 12-18 18:24 → 4TH 12-19 18:24 → OBSVTOIN 12-19 18:24 → ERHOLD 12-19 18:24
PROVIDERS: ADMIT Family Medicine; ATTEND Hospitalist
DX: I95.1 Orthostatic hypotension (principal); I50.32 Chronic diastolic (congestive) heart failure; I13.0 Hypertensive heart and chronic kidney disease with heart failure and stage 1 through stage 4 chronic kidney disease, or unspecified chronic kidney disease; N18.2 Chronic kidney disease, stage 2 (mild); E11.22 Type 2 diabetes mellitus with diabetic chronic kidney disease; E78.00 Pure hypercholesterolemia, unspecified; I48.91 Unspecified atrial fibrillation; G25.0 Essential tremor; I27.20 Pulmonary hypertension, unspecified; R29.6 Repeated falls; I25.10 Atherosclerotic heart disease of native coronary artery without angina pectoris; W18.30XA Fall on same level, unspecified, initial encounter; Z88.0 Allergy status to penicillin; Z95.5 Presence of coronary angioplasty implant and graft; Z91.81 History of falling; Z79.01 Long term (current) use of anticoagulants; Z86.73 Personal history of transient ischemic attack (TIA), and cerebral infarction without residual deficits; Z79.899 Other long term (current) drug therapy; Y99.9 Unspecified external cause status; Y93.01 Activity, walking, marching and hiking; Y92.009 Unspecified place in unspecified non-institutional (private) residence as the place of occurrence of the external cause
CPT/HCPCS: 36415; 70450; 71045; 71275; 72170; 80048; 80053; 80076; 81003; 83735; 83880; 84484; 85025; 85379; 85610; 93005; 93306; 93880; 94760; 96360; 96361; 97116; 97161; 99285; J7030; J7040; J8597; Q9967